=== PATIENT | male | born 1960 | race Hispanic/Latino ===

== ENCOUNTER 2020-04-15 21:44 | Emergency (ER) | payer OTHER ==
[2020-04-15] MEDS ORDERED: HYDROCODONE/APAP 10/325 TAB ONE (22:15)
--- NOTE | 2020-04-15 23:56 | EDPHYS ---
Physician Documentation [facility] Name: Ryne Whiteside Age: 59 yrs Sex: Male : 1960 Arrival Date: 04/15/2020 Time: 21:46 Bed 5 Private MD: ED Physician Noble Yoder HPI: 04/15 21:58 This 59 yrs old Male presents to ER via Wheelchair with complaints of Foot Injury. jmm 21:58 The patient presents with an injury, pain, that is acute. Onset: The symptoms/episode jmm began/occurred acutely, just prior to arrival. Modifying factors: The symptoms are alleviated by nothing. the symptoms are aggravated by nothing. This is a 59 year old male with no chronic medical conditions that presents to the ED with swelling to the right foot beginning after a metal beam hit the dorsal surface of hit foot. Denies other injury. . Historical: - Allergies: 21:50 No Known Allergies; sg - PMHx: 21:50 None; sg - PSHx: 21:50 None; sg - Immunization history:: Adult Immunizations up to date, Last tetanus immunization: up to date. - Social history:: Smoking status: Patient denies any tobacco usage or history of. ROS: 21:58 Constitutional: Negative for fever, chills, and weight loss, Cardiovascular: Negative jmm for chest pain, palpitations, and edema, Respiratory: Negative for shortness of breath, cough, wheezing, and pleuritic chest pain. 21:58 MS/extremity: Positive for injury or acute deformity, pain, swelling. 21:58 All other systems are negative. Exam: 21:58 Constitutional: This is a well developed, well nourished patient who is awake, alert, jmm and in no acute distress. Head/Face: atraumatic. Eyes: EOMI, no conjunctival erythema appreciated ENT: Moist Mucus Membranes Neck: Trachea midline, Supple Chest/axilla: Normal chest wall appearance and motion. Cardiovascular: Regular rate and rhythm. No edema appreciated Respiratory: Normal respirations, no respiratory distress appreciated Abdomen/GI: Non distended, soft Back: Normal ROM Skin: General appearance color normal 21:58 Musculoskeletal/extremity: swelling noted to the right foot, compartments are soft, < 2 sec dist cap refill, NVI. 21:58 Skin: Appearance: Color: normal in color. 21:58 Neuro: Orientation: is normal, Mentation: is normal, Memory: is normal. 21:58 Psych: Behavior/mood is pleasant, cooperative. Vital Signs: 22:29 BP 154 / 87; Pulse 84; Resp 18; Temp 98.1(O); Pulse Ox 98% on R/A; Weight 71.21 kg; ar5 Height 5 ft. 3 in. (160.02 cm); Pain 05/15; 23:06 BP 152 / 82; Pulse 78; Resp 18; Pulse Ox 99% ; ea 04/16 00:13 BP 143 / 93; Pulse 73; Resp 17; Temp 98; Pulse Ox 99% on R/A; rv 04/15 22:29 Body Mass Index 27.81 (71.21 kg, 160.02 cm) ar5 MDM: 04/15 21:55 Patient medically screened. [facility] 23:52 Data reviewed: vital signs, nurses notes. Counseling: I had a detailed discussion with [facility] the patient and/or guardian regarding: the historical points, exam findings, and any diagnostic results supporting the discharge/admit diagnosis, radiology results, the need for outpatient follow up, to return to the emergency department if symptoms worsen or persist or if there are any questions or concerns that arise at home. ED course: Swelling has decreased. Patient states pain has decreased. Patient is advised to follow up with ortho for reevaluation and to return to the ED if increased pain developed. Patient understood and agrees with the plan of care. . 04/15 21:58 Order name: Foot Right 3 View XRAY [facility] 04/15 23:52 Order name: Misc. Order: ortho shoe, crutches; Complete Time: 00:06 [facility] Administered Medications: 22:07 Drug: [place] 10 mg-325 mg 1 tabs Route: PO; rv 23:54 Follow up: Response: No adverse reaction cristela Disposition: 04/16 05:48 Co-signature as Attending Physician, Noble Yoder MD. [email or web address] Disposition: 04/15/20 23:55 Discharged to Home. Impression: Fracture of first metatarsal bone. - Condition is Stable. - Discharge Instructions: Hematoma, Metatarsal Fracture. - Prescriptions for Ultracet 37.5- 325 mg Oral Tablet - take 1 tablet by ORAL route every 6 hours - for up to 5 days; do not exceed 8 tablets per day.; 20 tablet. - Medication Reconciliation Form, Thank You Letter, Antibiotic Education, Prescription Opioid Use form. - Follow up: Private Physician; When: 2 - 3 days; Reason: Recheck today's complaints, Continuance of care, Re-evaluation by your physician. Signatures: Dispatcher [employer] EDPaul Booker RN RN Juan Aldana PA PA jmm Vicente, Ronaldo, RN RN rv Holmes, Maurice, MD MD [facility] Amy Garces RN, ea Corrections: (The following items were deleted from the chart) 00:14 04/15 23:55 04/15/2020 23:55 Discharged to Home. Impression: Fracture of first rv metatarsal bone. Condition is Stable. Forms are Medication Reconciliation Form, Thank You Letter, Antibiotic Education, Prescription Opioid Use. Follow up: Private Physician; When: 2 - 3 days; Reason: Recheck today's complaints, Continuance of care, Re-evaluation by your physician. [email or web address]
--- NOTE | 2020-04-15 23:56 | ER ---
Nurse's Notes [facility] Name: Ryne Whiteside Age: 59 yrs Sex: Male : 1960 Arrival Date: 04/15/2020 Time: 21:46 Bed 5 Private MD: Diagnosis: Fracture of first metatarsal bone Presentation: 04/15 21:48 Chief complaint: Patient states: I was at work when a metal beam fell on the top of my sg right foot, now there is pain and swelling to the top of my right foot. Coronavirus screen: Client denies travel out of the [place] in the last 14 days. At this time, the client does not indicate any symptoms associated with coronavirus-19. Ebola Screen: Patient negative for fever greater than or equal to 101.5 degrees Fahrenheit, and additional compatible Ebola Virus Disease symptoms Patient denies exposure to infectious person. Patient denies travel to an Ebola-affected area in the 21 days before illness onset. No symptoms or risks identified at this time. Initial Sepsis Screen: Does the patient meet any 2 criteria? No. Patient's initial sepsis screen is negative. Does the patient have a suspected source of infection? No. Patient's initial sepsis screen is negative. Risk Assessment: Do you want to hurt yourself or someone else? Patient reports no desire to harm self or others. Onset of symptoms was April 15, 2020. Care prior to arrival: None. Mechanism of Injury: Crush injury from industrial equipment, that had unknown weight. Extrication was not required. Transition of care: patient was not received from another setting of care. 21:48 Method Of Arrival: Wheelchair 21:48 Acuity: ZEE 4 Triage Assessment: 22:20 Injury Description: Bruise sustained to right foot is purple, swelling noted to top of ea foot was sustained 30-60 minutes ago. Historical: - Allergies: 21:50 No Known Allergies; sg - PMHx: 21:50 None; sg - PSHx: 21:50 None; sg - Immunization history:: Adult Immunizations up to date, Last tetanus immunization: up to date. - Social history:: Smoking status: Patient denies any tobacco usage or history of. Screenin:20 Abuse screen: Denies threats or abuse. Nutritional screening: No deficits noted. ea Tuberculosis screening: No symptoms or risk factors identified. Fall Risk None identified. Assessment: 22:18 General: Appears in no apparent distress. Behavior is appropriate for age. Pain: ea Complains of pain in right foot. Neuro: Level of Consciousness is awake, alert, obeys commands, Oriented to person, place, time, situation. Cardiovascular: Patient's skin is warm and dry. Respiratory: Airway is patent Respiratory effort is even, unlabored, Respiratory pattern is regular, symmetrical. Derm: swelling and bruising noted to right top of foot. Musculoskeletal: Circulation, motion, and sensation intact. Vital Signs: 22:29 BP 154 / 87; Pulse 84; Resp 18; Temp 98.1(O); Pulse Ox 98% on R/A; Weight 71.21 kg; ar5 Height 5 ft. 3 in. (160.02 cm); Pain 05/15; 23:06 BP 152 / 82; Pulse 78; Resp 18; Pulse Ox 99% ; ea 04/16 00:13 BP 143 / 93; Pulse 73; Resp 17; Temp 98; Pulse Ox 99% on R/A; rv 04/15 22:29 Body Mass Index 27.81 (71.21 kg, 160.02 cm) ar5 ED Course: 04/15 21:46 Patient arrived in ED. am2 21:48 Arm band placed on. sg 21:50 Triage completed. sg 21:51 Juan Anguiano PA is PHCP. [facility] 21:51 Noble Yoder MD is Attending Physician. jmm 21:59 Zach Galindo, CARMELO is Primary Nurse. rv 22:19 Foot Right 3 View XRAY In Process Unspecified. EDMS 22:20 Patient has correct armband on for positive identification. Bed in low position. Call ea light in reach. Side rails up X2. 04/16 00:11 Crutch training done. Ortho shoe applied to right foot. ar5 00:14 No provider procedures requiring assistance completed. Patient did not have IV access rv during this emergency room visit. Administered Medications: 04/15 22:07 Drug: [place] 10 mg-325 mg 1 tabs Route: PO; rv 23:54 Follow up: Response: No adverse reaction ea Outcome: 23:55 Discharge ordered by . camille 04/16 00:14 Discharged to home with crutches. rv Condition: good Discharge instructions given to patient, Instructed on discharge instructions, follow up and referral plans. medication usage, crutch walking, Demonstrated understanding of instructions, follow-up care, medications, crutch walking, Prescriptions given X 1. 00:14 Patient left the ED. rv Signatures: Dispatcher [employer] EDPaul Booker, RN Juan Marks PA PA jmm Moreno, Amanda am2 Amy Garces RN RN ea Vicente, Ronaldo RN Kathleen Martins ar5
[2020-04-16 02:14] VITALS: O2SAT 99
[2020-04-16 02:15] VITALS: BP 143/93; TEMP 98
--- NOTE | 2020-04-16 08:18 | RAD REPORT ---
EXAM DESCRIPTION: RAD - Foot Right 3 View - 04/15/2020 10:18 pm CLINICAL HISTORY: injury Trauma, pain COMPARISON: No comparisons FINDINGS: Lucency is seen in the midshaft of the first metatarsal most compatible with nondisplaced fracture. There is significant soft tissue swelling along the dorsum of the foot. Prominent arthritic changes are present first MTP joint. IMPRESSION: Nondisplaced fracture midshaft of the first metatarsal.
== END 2020-04-16 00:14 | disposition home or self-care (01) ==
LOC: ER 21:44
DX: S92.311A Displaced fracture of first metatarsal bone, right foot, initial encounter for closed fracture (principal); W22.8XXA Striking against or struck by other objects, initial encounter; Y93.9 Activity, unspecified; Y92.9 Unspecified place or not applicable
CPT/HCPCS: 99284